=== PATIENT | male | born 1995 | race African-American/Black ===

== ENCOUNTER 2018-01-16 16:16 | Emergency (ER) | payer OTHER ==
[~2018-01-16] VITALS: Ht 188 cm; Wt 84.1 kg
[~2018-01-16 16:16] MED LIST: NO HOME MEDICATIONS; NORCO 325 MG-51 TAB PO
[2018-01-16 16:20] VITALS: TEMP 99.3
[2018-01-16] MEDS ORDERED: PEN-VEE K500 MG PO (16:58)
[2018-01-16 17:23] LABS: COLLECTION METHOD CLEAN CATCH
[2018-01-16 17:28] LABS: HEMATOCRIT 47.1 % (42.0-52.0); HEMOGLOBIN 15.5 g/dl (13.5-18.0); MEAN CELL VOLUME 88 fl (80.0-100.0); MEAN CORPUSCULAR HEMOGLOBIN 29 pg (27.0-31.0); MEAN CORPUSCULAR HGB CONC 33 g/dl (33.0-37.0); MEAN PLATELET VOLUME 9.8 fl (7.4-10.4); PLATELET COUNT 232 K/mm3 (130-400); RED BLOOD COUNT 5.38 M/mm3 (4.20-5.60); REDCELL DISTRIBUTION WIDTH-CV 13.2 % (11.5-14.5)
[2018-01-16 17:38] LABS: CALCIUM 9.7 mg/dL (8.4-10.2); CREATININE, serum 1.18 mg/dL (0.66-1.25); POTASSIUM 3.8 mmol/L (3.4-5.0)
[2018-01-16 17:38] LABS: MUCOUS Present /lpf; PH 5 (5-8); SQUAMOUS EPITHELIAL 0-2 /hpf; URINE APPEARANCE Hazy; URINE BACTERIA None Seen /hpf; URINE BILIRUBIN Negative (NEGATIVE); URINE BLOOD Negative (NEGATIVE); URINE COLOR Amber; URINE GLUCOSE Negative (NEGATIVE); URINE KETONE 1+ (NEGATIVE); URINE LEUKOCYTE ESTERASE Negative (NEGATIVE); URINE NITRATE Negative (NEGATIVE); URINE PROTEIN(semi-quant) 2+ (NEGATIVE); URINE UROBILINOGEN >=4.0 mg/dL (NEGATIVE)
[2018-01-16 17:50] LABS: BAND 3 % (0-10); LYMPHOCYTE 8 % (20.0-51.0); NEUTROPHILS 78 % (42.0-75.2); PLATELET ESTIMATE NORMAL (NORMAL)
[2018-01-16 20:18] VITALS: BP 109/59; PULSE 70
== END 2018-01-16 20:24 | disposition home or self-care (01) ==
LOC: COL.ER 16:16
PROVIDERS: Physician Assistant
DX: J02.9 Acute pharyngitis, unspecified (principal); M62.82 Rhabdomyolysis
CPT/HCPCS: J7030

== ENCOUNTER 2018-01-17 21:30 | Emergency (ER) | payer SELFPAY ==
[~2018-01-17] VITALS: Ht 188 cm; Wt 84.1 kg
[~2018-01-17 21:30] MED LIST changes: +PEN-VEE K500 MG PO
[2018-01-17 21:33] VITALS: TEMP 98
[2018-01-17 22:18] LABS: BASO % 0.3 % (0.0-2.0); EOS # 0.4 (0.0-0.7); EOS % 3.8 % (0-4.0); GRAN # 6.1 (1.4-6.5); GRAN % 61.5 % (42.2-75.2); HEMATOCRIT 40.5 % (42.0-52.0); LYMPH # 2.1 (1.2-3.4); LYMPH % 20.9 % (20.0-51.0); MEAN CELL VOLUME 85 fl (80.0-100.0); MEAN CORPUSCULAR HEMOGLOBIN 30 pg (27.0-31.0); MEAN CORPUSCULAR HGB CONC 35 g/dl (33.0-37.0); MEAN PLATELET VOLUME 9.7 fl (7.4-10.4); MONO # 1.3 (0.1-0.6); MONO % 13.2 % (1.7-9.3); PLATELET COUNT 221 K/mm3 (130-400); RED BLOOD COUNT 4.75 M/mm3 (4.20-5.60); REDCELL DISTRIBUTION WIDTH-CV 13.2 % (11.5-14.5)
[2018-01-17 22:26] LABS: ALBUMIN 3.8 gm/dL (3.5-5.0); BILIRUBIN,TOTAL 0.4 mg/dL (0.0-1.0); CREATININE, serum 1.04 mg/dL (0.66-1.25); MAGNESIUM 2.1 mg/dL (1.6-2.3); PHOSPHOROUS 3.3 mg/dL (2.5-4.5); POTASSIUM 4.2 mmol/L (3.4-5.0); TOTAL PROTEIN 7.4 gm/dL (6.4-8.2)
[2018-01-17 22:44] LABS: COLLECTION METHOD CLEAN CATCH
[2018-01-17 22:50] LABS: MUCOUS Present /lpf; PH 5 (5-8); SQUAMOUS EPITHELIAL 0-2 /hpf; URINE APPEARANCE Clear; URINE BACTERIA None Seen /hpf; URINE BILIRUBIN Negative (NEGATIVE); URINE BLOOD Negative (NEGATIVE); URINE COLOR Yellow; URINE GLUCOSE Negative (NEGATIVE); URINE KETONE Negative (NEGATIVE); URINE LEUKOCYTE ESTERASE Negative (NEGATIVE); URINE NITRATE Negative (NEGATIVE); URINE PROTEIN(semi-quant) 1+ (NEGATIVE); URINE RBC 0-2 /hpf; URINE UROBILINOGEN >=4.0 mg/dL (NEGATIVE)
[2018-01-18 00:02] VITALS: BP 129/73; PULSE 60
== END 2018-01-18 00:19 | disposition home or self-care (01) ==
LOC: COL.ER 21:30
PROVIDERS: Physician Assistant
DX: R10.11 Right upper quadrant pain (principal); R11.10 Vomiting, unspecified; E86.0 Dehydration; R74.8 Abnormal levels of other serum enzymes
CPT/HCPCS: C9113; J2405; J7030; J7040